=== PATIENT | male | born 2000 | race Hispanic/Latino ===

== ENCOUNTER 2022-04-01 23:01 | Emergency (ER) | payer SELFPAY ==
[~2022-04-01] VITALS: Ht 182.9 cm; Wt 96.2 kg
[2022-04-01] MEDS ORDERED: MECLIZINE HCL25 MG PO (23:47)
== END 2022-04-01 23:56 | disposition home or self-care (01) ==
LOC: ED 23:01
DX: R42 Dizziness and giddiness (principal); E78.5 Hyperlipidemia, unspecified
CPT/HCPCS: 36415; 80048; 83735; 85025; 99284; A9270